=== PATIENT | male | born 1985 | race Caucasian/White ===

== ENCOUNTER 2017-04-07 13:59 | Emergency (ER) | payer MEDICAID ==
[2017-04-07 14:12] VITALS: BP 104/68
--- NOTE | 2017-04-07 14:44 | ER Document Report ---
ED Oral Problem - General Chief Complaint: Toothache Stated Complaint: TOOTHACHE Time Seen by Provider: 04/07/17 14:27 Mode of Arrival: Ambulatory Information source: Patient Notes: -year-old male presents to ED for dental pain for tooth #32 and 31. The teeth have been hurting off and on for many months but have been worse for the last 2 months. TRAVEL OUTSIDE OF THE [place] IN LAST 30 DAYS: No - HPI Patient complains to provider of: Toothache Onset: Other - The last 2 months worse this week Onset: Gradual Quality of pain: Sharp, Throbbing Severity: Moderate Pain Level: 4 Associated symptoms: Toothache Worsened by: Cold Similar symptoms previously: Yes Recently seen / treated by doctor/dentist: No - Related Data Allergies/Adverse Reactions: amoxicillin [Amoxicillin] Allergy (Unknown, Verified 04/07/17 14:09) Past Medical History - General Information source: Patient - Social History Smoking Status: Current Every Day Smoker Cigarette use (# per day): Yes Chew tobacco use (# tins/day): No Smoking Education Provided: Yes - Less than 2 minute Frequency of alcohol use: None Drug Abuse: None Lives with: Spouse/Significant other Family History: Malignancy Patient has suicidal ideation: No Patient has homicidal ideation: No - Past Medical History Cardiac Medical History: Reports: None Pulmonary Medical History: Reports: Hx Asthma, Hx Bronchitis EENT Medical History: Reports: None Neurological Medical History: Reports: None Endocrine Medical History: Reports: None Renal/ Medical History: Reports: None Malignancy Medical History: Reports None GI Medical History: Reports: None Musculoskeltal Medical History: Reports None Skin Medical History: Reports None Psychiatric Medical History: Reports: Hx Anxiety, Hx Bipolar Disorder, Hx Depression Traumatic Medical History: Reports: None Infectious Medical History: Reports: None Surgical Hx: Negative Past Surgical History: Reports: None, Hx Myringotomy - Immunizations Hx Diphtheria, Pertussis, Tetanus Vaccination: No Review of Systems - Review of Systems Constitutional: No symptoms reported EENT: Dental problem Cardiovascular: No symptoms reported Respiratory: No symptoms reported Gastrointestinal: No symptoms reported Genitourinary: No symptoms reported Male Genitourinary: No symptoms reported Musculoskeletal: No symptoms reported Skin: No symptoms reported Hematologic/Lymphatic: No symptoms reported Neurological/Psychological: No symptoms reported -: Yes All other systems reviewed and negative Physical Exam - Vital signs Vitals: Temp Pulse Resp BP Pulse Ox 98.1 F 80 18 104/68 96 04/07/17 14:09 04/07/17 14:09 04/07/17 14:04/07/17 14:09 04/07/17 14:09 Interpretation: Normal - General General appearance: Appears well, Alert - HEENT Head: Normocephalic, Atraumatic Eyes: Normal Pupils: PERRL Ears: Normal External canal: Normal Tympanic membrane: Normal Sinus: Normal Nasal: Normal Mouth/Lips: Caries Mucous membranes: Normal Teeth diagram: 1 - Multiple teeth close to the gumline with mild gingivitis 2 - Multiple teeth close to the gumline with gingivitis Pharynx: Normal Neck: Normal - Respiratory Respiratory status: No respiratory distress Chest status: Nontender Breath sounds: Normal Chest palpation: Normal - Cardiovascular Rhythm: Regular Heart sounds: Normal auscultation Murmur: No - Abdominal Inspection: Normal Distension: No distension Bowel sounds: Normal Tenderness: Nontender Organomegaly: No organomegaly - Back Back: Normal, Nontender - Extremities General upper extremity: Normal inspection, Nontender, Normal color, Normal ROM , Normal temperature General lower extremity: Normal inspection, Nontender, Normal color, Normal ROM , Normal temperature, Normal weight bearing. No: Eros's sign - Neurological Neuro grossly intact: Yes Cognition: Normal Orientation: AAOx4 [place] Coma Scale Eye Opening: Spontaneous Kelly Coma Scale Verbal: Oriented Kelly Coma Scale Motor: Obeys Commands [place] Coma Scale Total: 15 Speech: Normal Motor strength normal: LUE, RUE, LLE, RLE Sensory: Normal - Psychological Associated symptoms: Normal affect, Normal mood - Skin Skin Temperature: Warm Skin Moisture: Dry Skin Color: Normal Course - Vital Signs Vital signs: Temp Pulse Resp BP Pulse Ox 98.1 F 80 18 104/68 96 04/07/17 14:09 04/07/17 14:09 04/07/17 14:04/07/17 14:09 04/07/17 14:09 Discharge - Discharge Clinical Impression: Pain due to dental caries Condition: Serious Disposition: HOME, SELF-CARE Instructions: Dentist Additional Instructions: TOOTHACHE: Your pain is due to dental decay. The tooth must be repaired in order for you to feel better. You will, therefore, be referred to a dentist. We do not have dentists on the staff at [facility]. Severe swelling or drainage around a tooth usually means a dental abscess. This also requires evaluation and treatment by the dentist, but antibiotics may be prescribed while awaiting dental treatment. You should be rechecked immediately if you develop major swelling of the face, increasing pain, a lump in the jaw or gums, headache, difficulty swallowing, or fever. ORAL NARCOTIC MEDICATION: You have been given a prescription for pain control. This medication is a narcotic. It's best taken with food, as nausea can result if taken on an empty stomach. Don't operate machinery or drive within six hours of taking this medication. Do not combine this medicine with alcohol, or with any medication which can cause sedation (such as cold tablets or sleeping pills) unless you get permission from the physician. Narcotics tend to cause constipation. If possible, drink plenty of fluids and eat a diet high in fiber and fruits. Please be aware that prescription narcotics also have the potential for abuse. People become addicted to these medications because of the general sense of wellbeing that they induce. This feeling along with a significant reduction in tension, anxiety, and aggression provides a stimulating seductive quality to these drugs. Once your pain is under control, we encourage you to discard your unused narcotics. CLINDAMYCIN: You have been given a prescription for the antibiotic clindamycin. It is often prescribed for infections in the mouth, such as dental infections or abscesses, and for skin infections due to MRSA. It's important that you take all the medication, unless instructed otherwise by your physician. Failure to complete the entire course can result in relapse of your condition. Common side effects of antibiotics include nausea, intestinal cramping, or diarrhea. Women may develop vaginal yeast infections, and babies can get yeast (thrush) in the mouth following the use of antibiotics. Contact your physician if you develop significant side effects from this medication. Allergy to this antibiotic can result in hives, wheezing, faintness, or itching. If symptoms of allergy occur, stop the medication and call the doctor. FOLLOW-UP CARE: You have been referred for follow-up care to the dentists listed below. Call the dentists office for an appointment as you were instructed or within the next two days. If you experience worsening or a significant change in your symptoms, notify the physician immediately or return to the Emergency Department at any time for re-evaluation. [facility] [address] [place], [place] Leonardo mornings, by appointment [facility] [address] [place] [address] [facility] [place] [address] [facility] [address] [facility] [address] [email or web address] [address] [place] [address] Wednesday- 8:00am to 5:00 pm Will see patients from other [facility]. Charges based on income and family size and accepts Medicare, Medicaid, and Insurances Will pull molars [facility] [address] Hours of Operation 8:00 am - 4:30 pm weekdays The following dental offices accept Medicaid: [facility] [address] Ma Dr. Mejia Gabino [place], and [facility] Dr. Blackburn ([place]) Dr. Miller ([place]) [facility] Drs. Betts and Evan ([place]) Dr. Torres ([place]) [facility] Ctr Dr. Burroughs ([place]) Drs. Zavala and ([place]) Medicaid Care Line Prescriptions: Clindamycin HCl 300 mg PO Q6 #28 capsule Hydrocodone/Acetaminophen [[place] 5-325 mg Tablet] 1 tab PO TIDP PRN #10 tablet PRN Reason: Forms: Smoking Cessation Education
== END 2017-04-07 15:03 | disposition home or self-care (01) ==
LOC: ER 13:59
DX: K02.9 Dental caries, unspecified (principal); K08.89 Other specified disorders of teeth and supporting structures; F17.210 Nicotine dependence, cigarettes, uncomplicated
CPT/HCPCS: 99282

== ENCOUNTER 2017-09-06 02:41 | Emergency (ER) | payer MEDICAID ==
[2017-09-06] MEDS ORDERED: MIDAZOLAM 2 MG/2 ML INJ ONE ×2 (02:46→02:50)
[2017-09-06] MEDS ORDERED: CEFTRIAXONE INJ 1000 MG VIAL IV ONE (02:57)
[2017-09-06] MEDS ORDERED: VANCOMYCIN HCL INJ 1000 MG VIAL IV ONE (02:57)
[2017-09-06] MEDS ORDERED: MIDAZOLAM 2 MG/2 ML INJ IV ONE ×4 (03:00→04:52)
--- NOTE | 2017-09-06 03:01 | ER Document Report ---
ED General - General Chief Complaint: Overdose Stated Complaint: UNRESPONSIVE Time Seen by Provider: 09/06/17 02:57 Notes: Patient is a 32-year-old male who presents via ambulance due to high fever, muscle tremors, altered mental status, and IV drug abuse. Paramedics were called to a residence. They found the patient poorly responsive and having tremor. He would not open his eyes his pupils were pinpoint. They did give him Narcan. He did open his eyes and was awake after that however very altered and was unable to talk or speak or give him information. Members at the residents says that he has been injecting cocaine as well as Ambien all day long. Unsure if anything else that they may injected. He had a fever of 104 axillary with the paramedics. He was given a gram of Tylenol. He was then brought here. Patient arrives with ongoing muscle tremors. He is awake but obviously altered and not consolable. TRAVEL OUTSIDE OF THE [place] IN LAST 30 DAYS: No - Related Data Allergies/Adverse Reactions: amoxicillin [Amoxicillin] Allergy (Unknown, Verified 04/07/17 14:09) Past Medical History - Social History Smoking Status: Unknown if Ever Smoked Frequency of alcohol use: uknown Drug Abuse: Cocaine, Prescription drugs Family History: Reviewed & Not Pertinent, Malignancy Pulmonary Medical History: Reports: Hx Asthma, Hx Bronchitis Renal/ Medical History: Denies: Hx Peritoneal Dialysis Psychiatric Medical History: Reports: Hx Anxiety, Hx Bipolar Disorder, Hx Depression Past Surgical History: Reports: Hx Myringotomy - Immunizations Hx Diphtheria, Pertussis, Tetanus Vaccination: No Review of Systems - Review of Systems -: Yes ROS unobtainable due to patient's medical condition - Review of systems unable to be obtained because patient is confused. Physical Exam - Vital signs Vitals: Temp Resp Pulse Ox 104.8 F H 36 H 93 09/06/17 03:05 09/06/17 03:05 09/06/17 03:05 - Notes Notes: General Appearance: Patient is a week however he is thrashing about. He has ongoing tremors. He is trying to fight this staff but is completely nonverbal and not saying anything. Vitals: reviewed, See vital signs table. Head: no swelling or tenderness to the head Eyes: Pupils are approximately 4 mm and reactive to light. Mouth: No decreasd moisture Throat: No tonsillar inflammation, No airway obstruction, No lymphadenopathy Neck: Supple, no neck tenderness Lungs: No wheezing, No rales, No rhonci, No accessory muscle use, good air exchange bilaterally. Heart: Tachycardic rate, Regular rythm, No murmur, no rub Abdomen: Normal BS, soft, No rigidity, No abdominal tenderness, No guarding, no rebound, no abdominal masses, no organomegaly Extremities: She is very strong on exam. He is moving all extremities. He has ongoing tremors as well. No edema in extremities. Patient has multiple track walker on both upper extremities. Skin: warm, dry, appropriate color, no rash Neuro: Awake but very confused with ongoing tremors. Patient is moving all extremities on his own. Course - Re-evaluation Re-evalutation: 09/06/17 03:21 I suspect the most likely the patient's elevated temp and tremors is related to the ongoing IV abuse that he has been doing tonight. I suspect that he was indeed doing cocaine based on his high heart rate and ongoing tremors and hyperthermia. I also suspect he may have used other drugs such as opiates being that when he was first found his pupils were pinpoint and this reversed with Narcan and he woke. I initially gave the patient 3 mg of Versed which typically calm down. I then had given another 3 mg of Versed IV. This temporarily stopped his tremor for approximately 5 minutes but then he started having a tremor again. Patient is now poorly responsive with ongoing tremor. I therefore have decided to intubate the patient. I give the patient rocuronium 100 mg followed by Versed. Patient will be placed on high-dose Versed drip. Cor temp Nuno catheter has been placed and his temp is just over 104. He is receiving IV fluids as well. I suspect that his fever and tremors are related to his IV drug abuse. I cannot 100% rule out possible infection being that he is an IV drug abuser as well and therefore will prophylactically treat him with Rocephin and vancomycin in the meantime. Laboratory evaluation has been ordered. Patient will be closely monitored until workup is completed. We will continue to try to treat his temp. will continue to keep him at a dose Versed drip until the rocuronium wears off so that we are treating in the underlying potential seizure activity which is definitely a strong possibility of occurring with his reported overdosages. I currently do not have the capability of continuous EEG at my facility. 09/06/17 03:24 09/06/17 04:11 Patient is doing better after intubation. His Versed drip is at 10 mg an hour. On the monitor his heart rate is in the 130s now. His blood pressure is normal. His oxygenation is normal. His temp has come down to 102.9. 09/06/17 05:31 I did perform a lumbar puncture on the patient. Results are pending. I have spoken with Dr. Verdugo, chicken hanger at [facility], he agrees to accept the patient. I feel the patient needs transfer being that the patient has higher risk of developing subclinical status and we have no ability to monitor with EEG here. Dr. Verdugo agrees to accept the patient and patient will be transferred. Patient's current temp is now down to 100.9F. His heart rate is down to 118. Blood pressure is normal. 09/06/17 05:46 Patient has had 2 episodes of oxygen desaturation which seems to be related to mucus plugging. It seems to clear with suctioning. I will obtain a repeat chest x-ray to make sure nothing else is going on. 09/06/17 06:06 Patient is bed assignment at [facility]. Helicopter is just now arriving. Patient's blood pressure has been in the 80s systolically over the last 30 minutes. I will decrease his Versed drip. This will most likely help correct his mild hypotension. His mean arterial pressure is currently 68 therefore does not need any pressor therapy at this time. I suspect with decreasing the Versed drip and giving him IV fluids if needed this will help correct any mild hypotension he has. Stable for transfer. Dictation of this chart was performed using voice recognition software; therefore, there may be some unintended grammatical errors. - Vital Signs Vital signs: Temp Pulse Resp BP Pulse Ox 99.8 F 18 86/59 L 98 09/06/17 06:56 09/06/17 06:56 09/06/17 06:56 09/06/17 06:56 - Laboratory Result Diagrams: 09/06/17 02:45 09/06/17 02:45 Laboratory results interpreted by me: 09/06/17 09/06/17 09/06/17 02:45 02:45 02:45 WBC 2.3 L Seg Neuts % (Manual) 20 L Lymphocytes % (Manual) 70 H Monocytes % (Manual) 2 L Abs Neuts (Manual) 0.6 L Abs Monocytes (Manual) 0.0 L Carbon Dioxide 18 L Glucose 144 H Lactic Acid 4.7 H Urine Protein CSF Glucose Salicylates < 1.0 L Acetaminophen < 10 L 09/06/17 09/06/17 03:00 04:50 WBC Seg Neuts % (Manual) Lymphocytes % (Manual) Monocytes % (Manual) Abs Neuts (Manual) Abs Monocytes (Manual) Carbon Dioxide Glucose Lactic Acid Urine Protein 100 H CSF Glucose 73 H Salicylates Acetaminophen - EKG Interpretation by Me Additional EKG results interpreted by me: 09/06/17 04:10 EKG is reviewed and interpreted by me. EKG shows sinus tachycardia with rate of [address] segment elevation or depression. MT interval, QRS duration, QTc intervals are within normal range. Old EKG for comparison is from September 03, 2012. Procedures - Intubation Orotracheal Airway evaluation: Normal anatomy Mallampati Classification: Class 1 Intubation method: Orotracheal Blade size: 3 ETT size: 7.5 ETT secured at: Lips ETT secured at (cm): 23 Breath Sounds after Intubation: Equal End tidal CO2 confirmed: Yes Post Intubation Xray: Yes Intubation Complications: No complications - Lumbar Puncture Lumbar puncture Patient position: Lying Needle size: 22 Lumbar puncture location: L2-L3 Amount/type of drainage: 7mls of clear CSF Number of attempts: 2 Complications: No Critical Care Note - Critical Care Note Total time excluding time spent on procedures (mins): 60 Comments: Critical care time spent is this patient not including time spent on procedures approximately 60 minutes due to management of high fever, seizures, some mild hypotension, frequent re-evaluations, discussion with specialist the receiving facility. Discharge - Discharge Clinical Impression: Amphetamine abuse, Cocaine abuse, Opiate abuse, continuous, Seizure Fever Qualifiers: Fever type: unspecified Qualified Code(s): R50.9 - Fever, unspecified Aspiration into respiratory tract Qualifiers: Encounter type: initial encounter Qualified Code(s): T17.908A - Unspecified foreign body in respiratory tract, part unspecified causing other injury, initial encounter Condition: Serious Disposition: [facility]
[2017-09-06] MEDS ORDERED: ETOMIDATE INJ/PF 20 MG/10 ML SDV IV ONE (03:05)
[2017-09-06] MEDS ORDERED: MIDAZOLAM HCL 100 ML IV PRN (03:06)
[2017-09-06] MEDS ORDERED: ROCURONIUM BROMIDE INJ 50 MG/5 ML VIAL IV ONE ×2 (03:06→09:07)
[2017-09-06 03:12] LABS: HEMATOCRIT 40.4 % (37.9-51.0); HEMOGLOBIN 14.3 g/dL (13.5-17.0); HGB HCT DIFFERENCE 2.5; MEAN CORPUSCULAR HEMOGLOBIN 30.3 pg (27.0-33.4); MEAN CORPUSCULAR HGB CONC 35.4 g/dL (32.0-36.0); MEAN CORPUSCULAR VOLUME 86 fl (80-97); RED BLOOD COUNT 4.71 10^6/uL (4.35-5.55); RED CELL DISTRIBUTION WIDTH 13.4 % (11.5-14.0); WHITE BLOOD COUNT 2.3 10^3/uL (4.0-10.5)
[2017-09-06] MEDS ORDERED: KETOROLAC TROMETHAMINE INJ/PF 30 MG/1 ML SDV IV ONE (03:24)
[2017-09-06 03:31] LABS: BAND NEUTROPHILS % (MANUAL) 5 % (3-5); BASOPHILS % (MANUAL) 0 % (0-2); EOSINOPHILS % (MANUAL) 3 % (0-6); LYMPHOCYTES % (MANUAL) 70 % (13-45); TOTAL CELLS COUNTED 100
[2017-09-06 03:33] LABS: POIKILOCYTOSIS SLIGHT; STOMATOCYTES SLIGHT; TOXIC GRANULATION SLIGHT; TOXIC VACUOLATION PRESENT
[2017-09-06 03:38] LABS: APPEARANCE,URINE CLEAR; BILIRUBIN,URINE NEGATIVE (NEGATIVE); GLUCOSE, URINE NEGATIVE (NEGATIVE); KETONES,URINE NEGATIVE (NEGATIVE); LEUKOCYTE ESTERASE,URINE NEGATIVE (NEGATIVE); NITRITE,URINE NEGATIVE (NEGATIVE); PROTEIN,URINE 100 mg/dL (NEGATIVE); URINE SPECIFIC GRAVITY 1.034; UROBILINOGEN,URINE NEGATIVE mg/dL (<2.0)
[2017-09-06] MEDS: NORMAL SALINE 1000 ML 1,000 ML IV PRN ×2 (04:01→04:04)
[2017-09-06 04:05] LABS: ALANINE AMINOTRANSFERASE 36 U/L (21-72); ALBUMIN 4.2 g/dL (3.5-5.0); ALKALINE PHOSPHATASE 55 U/L (38-126); ASPARTATE AMINO TRANSFERASE 45 U/L (17-59); BILIRUBIN,DIRECT 0.4 mg/dL (0.0-0.4); BILIRUBIN,TOTAL 0.9 mg/dL (0.2-1.3); BLOOD UREA NITROGEN 14 mg/dL (7-20); CALCIUM 8.8 mg/dL (8.4-10.2); CREATINE KINASE 86 U/L (55-170); CREATININE RESULT 1.14 mg/dL (0.52-1.25); GLUCOSE 144 mg/dL (75-110); TOTAL PROTEIN 6.7 g/dL (6.3-8.2)
[2017-09-06] MEDS ORDERED: LIDOCAINE 1% INJ-PF (10 MG/ML) 30 ML SDV INJ ONE (04:11)
[2017-09-06 04:14] LABS: ANION GAP 18 (5-19); CARBON DIOXIDE 18 mmol/L (22-30); CHLORIDE 106 mmol/L (98-107); POTASSIUM 4.2 mmol/L (3.6-5.0); SODIUM 142.2 mmol/L (137-145)
--- NOTE | 2017-09-06 04:15 | RADIOLOGY REPORT (SQ) ---
EXAM DESCRIPTION: CHEST SINGLE VIEW COMPLETED DATE/TIME: 09/06/2017 3:42 am REASON FOR STUDY: post intubation COMPARISON: None. EXAM PARAMETERS: NUMBER OF VIEWS: One view TECHNIQUE: Single frontal radiograph of the chest. RADIATION DOSE: N/A LIMITATIONS: None. FINDINGS: TEMPORARY SUPPORT DEVICES:ETT in expected location. NG tube courses below the left keagan-d iaphragm in to the stomach. LUNGS AND PLEURA: No consolidation, pleural effusion or pneumothorax. MEDIASTINUM AND HILAR STRUCTURES: No masses. Contour normal. HEART AND VASCULAR STRUCTURES: Heart size normal. No overt vascular congestion. BONES: No acute findings. IMPRESSION: No acute radiographic findings in the chest. Support devices in expected locations. TECHNICAL DOCUMENTATION: JOB ID: [id number] 2010 [employer]- All Rights Reserved
[2017-09-06 04:17] LABS: URINE BARBITURATES SCREEN NEGATIVE; URINE METHADONE SCREEN NEGATIVE; URINE PHENCYCLIDINE SCREEN NEGATIVE
[2017-09-06 04:56] LABS: THYROID STIMULATING HORMONE 0.56 uIU/mL (0.47-4.68)
[2017-09-06 05:53] LABS: GLUCOSE,CSF 73 mg/dL (40-70)
[2017-09-06 06:00] LABS: APPEARANCE ALL TUBES CLEAR
[2017-09-06 06:01] LABS: RBC AVERAGE 0.5; RBC DILUENT USED NONE USED; RBC DILUTION FACTOR 1; RBC SIDE 1 0; RBC SIDE 2 1; TOTAL RBC SQUARES COUNTED 225
[2017-09-06 06:02] LABS: WHITE BLOOD CELL,CSF 0 /uL (0-5)
--- NOTE | 2017-09-06 06:13 | RADIOLOGY REPORT (SQ) ---
EXAM DESCRIPTION: CT HEAD WITHOUT COMPLETED DATE/TIME: 09/06/2017 6:02 am REASON FOR STUDY: altered mental status, OD. COMPARISON: None. TECHNIQUE: Axial images acquired through the brain without intravenous contrast. Images reviewed wi th bone, brain and subdural windows. Images stored on PACS. All CT scanners at this facility use dose modulation, iterative reconstruction, and/or weight based d osing when appropriate to reduce radiation dose to as low as reasonably achievable (ALARA). [facility]: Dose Right [facility]: CareDose [facility]: Dose Right [facility]: Teradose 4D [facility]: [employer] RADIATION DOSE: Up-to-date CT equipment and radiation dose reduction techniques were employed. CTDIv ol: 64.6 mGy. DLP: 1397 mGy-cm. mGy. LIMITATIONS: None. FINDINGS: VENTRICLES: Normal size and contour. CEREBRUM: No mass effect. No hemorrhage. No midline shift. Normal alan/white matter differentiatio n. No evidence for acute territorial infarction. CEREBELLUM: No mass effect. No hemorrhage. No alteration of density. No evidence for acute infarct ion. EXTRAAXIAL SPACES: No fluid collections. ORBITS AND GLOBE: Symmetrical contour of the globes. CALVARIUM: No depressed skull fracture. PARANASAL SINUSES: No air-fluid level. SOFT TISSUES: No hematoma. IMPRESSION: No acute intracranial hemorrhage or acute territorial infarct. EVIDENCE OF ACUTE STROKE: NO. COMMENT: Quality ID # [id number]: Final reports with documentation of one or more dose reduction techniques (e.g., Automated exposure control, adjustment of the mA and/or kV according to patient size, use of iterative reconstruction technique) TECHNICAL DOCUMENTATION: JOB ID: [id number] [employer]- All Rights Reserved
--- NOTE | 2017-09-06 06:49 | RADIOLOGY REPORT (SQ) ---
EXAM DESCRIPTION: CHEST SINGLE VIEW COMPLETED DATE/TIME: 09/06/2017 6:19 am REASON FOR STUDY: desaturation on ventilator COMPARISON: Chest x-ray 09/06/2017 at 03:24 hours EXAM PARAMETERS: NUMBER OF VIEWS: One view TECHNIQUE: Single frontal radiographic view of the chest acquired portable upright on 09/06/2017 at 0 5:49 hours. RADIATION DOSE: N/A LIMITATIONS: None. FINDINGS: TEMPORARY SUPPORT DEVICES:ETT in expected location. NG tube courses below the left keagan-d iaphragm in to the stomach. LUNGS AND PLEURA: Ground-glass opacity at the right lung base. No pleural effusion or pneumothorax. MEDIASTINUM AND HILAR STRUCTURES: No masses. Contour normal. HEART AND VASCULAR STRUCTURES: Heart size normal. No overt vascular congestion. BONES: No acute findings. IMPRESSION: Ground-glass opacity at the right lung base, may represent atelectasis or aspiration pne umonia. Support devices in expected locations. TECHNICAL DOCUMENTATION: JOB ID: [id number] [place]-[id number] 2010 [employer]- All Rights Reserved
[2017-09-06] MEDS ORDERED: NORMAL SALINE 1000 ML 1,000 ML IV ONE (07:00)
[2017-09-06 07:27] LABS: URINE OPIATES LOW UNCONFIRMED POSITIVE
[2017-09-06 08:02] VITALS: BP 77/59
--- NOTE | 2017-09-06 21:37 | EKG REPORT ---
SEVERITY:- ABNORMAL ECG - SINUS TACHYCARDIA NONSPECIFIC T ABNORMALITIES, INFERIOR LEADS : Confirmed by: Jimenez Carroll 06-Sep-2017 21:36:33
== END 2017-09-06 07:21 | disposition short-term general hospital (02) ==
LOC: ER 02:41
PROC: 0BH17EZ Insertion of Endotracheal Airway into Trachea, Via Natural or Artificial Opening (ICD-10-PCS; principal; 2017-09-06)
PROC: 009U3ZX Drainage of Spinal Canal, Percutaneous Approach, Diagnostic (ICD-10-PCS; 2017-09-06)
DX: F14.10 Cocaine abuse, uncomplicated (principal); F15.10 Other stimulant abuse, uncomplicated; F11.10 Opioid abuse, uncomplicated; R50.9 Fever, unspecified; R56.9 Unspecified convulsions; I95.9 Hypotension, unspecified; T17.998A Other foreign object in respiratory tract, part unspecified causing other injury, initial encounter; X58.XXXA Exposure to other specified factors, initial encounter
CPT/HCPCS: 93005; 99291; 51702; 96375; 96365; 96366; 96368; 36415; 87040; 87070; 84439; 87205; 82550; 80307 ×3; 84443; 85025; 89050; 82945; 84157; 87077; 80053; 81001; 87186; 83605; 71010; 70450; 93010; 31500; 62270; J2250 ×2; J3490 ×2; J1885; J0696; J7030; J3370

== ENCOUNTER 2018-09-27 22:29 | Emergency (ER) | payer MEDICAID, OTHER ==
[2018-09-27] MEDS ORDERED: LORAZEPAM INJ 2 MG/1 ML VIAL IV ONE ×2 (22:35→23:01)
[2018-09-27] MEDS ORDERED: NORMAL SALINE 1000 ML 1,000 ML IV ONE (22:35)
[2018-09-27 22:55] LABS: ABSOLUTE BASOPHILS # (AUTO) 0.1 10^3/uL (0.0-0.2); ABSOLUTE LYMPHOCYTES (AUTO) 2.4 10^3/uL (0.5-4.7); ABSOLUTE MONOCYTES (AUTO) 0.9 10^3/uL (0.1-1.4); ABSOLUTE NEUT (AUTO) 10.5 10^3/uL (1.7-8.2); BASOPHILS % (AUTO) 0.9 % (0-2); EOSINOPHILS % (AUTO) 0.2 % (0-6); HEMATOCRIT 45.2 % (37.9-51.0); HEMOGLOBIN 15.9 g/dL (13.5-17.0); LYMPHOCYTES % (AUTO) 17.2 % (13-45); MEAN CORPUSCULAR HEMOGLOBIN 30.3 pg (27.0-33.4); MEAN CORPUSCULAR HGB CONC 35.2 g/dL (32.0-36.0); MEAN CORPUSCULAR VOLUME 86 fl (80-97); MONOCYTES % (AUTO) 6.6 % (3-13); PLATELET COUNT 329 10^3/uL (150-450); RED BLOOD COUNT 5.25 10^6/uL (4.35-5.55); RED CELL DISTRIBUTION WIDTH 12.8 % (11.5-14.0); SEGMENTED NEUTROPHILS % (AUTO) 75.1 % (42-78); TOTAL CELLS COUNTED % (AUTO) 100 %; WHITE BLOOD COUNT 13.9 10^3/uL (4.0-10.5)
--- NOTE | 2018-09-27 23:02 | ER Document Report ---
ED General - General Chief Complaint: Anxiety Stated Complaint: ANXIETY Time Seen by Provider: 09/27/18 22:34 Notes: Patient is a 33-year-old male who presents via ambulance due to being tachycardic and very anxious and agitated after doing methamphetamine. Patient says he does not think anything else was with the meth based on 100% sure either. Patient is very anxious and talking rapidly and having a hard time staying still. He denies headache. He denies chest pain. He says he just feels very "scared". He says he does not have any chronic medical problems and is otherwise healthy. 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 TRAVEL OUTSIDE OF THE [place] IN LAST 30 DAYS: No - Related Data Allergies/Adverse Reactions: amoxicillin [Amoxicillin] Allergy (Unknown, Verified 04/07/17 14:09) Past Medical History - Social History Smoking Status: Current Every Day Smoker Chew tobacco use (# tins/day): No Frequency of alcohol use: None Drug Abuse: Cocaine, Heroin, Methamphetamine Family History: Reviewed & Not Pertinent, Malignancy Patient has suicidal ideation: No Patient has homicidal ideation: No Pulmonary Medical History: Reports: Hx Asthma, Hx Bronchitis Renal/ Medical History: Denies: Hx Peritoneal Dialysis Psychiatric Medical History: Reports: Hx Anxiety, Hx Bipolar Disorder, Hx Depression Past Surgical History: Reports: Hx Myringotomy - Immunizations Hx Diphtheria, Pertussis, Tetanus Vaccination: No Review of Systems - Review of Systems Notes: My Normal Review Basic REVIEW OF SYSTEMS: CONSTITUTIONAL : Denies fever, chills, or sweats. Denies recent illness. EENT: Denies eye, ear, throat, or mouth pain or symptoms. Denies nasal or sinus congestion. CARDIOVASCULAR: Rotations. No chest pain. RESPIRATORY: Denies cough, cold, or chest congestion. Denies shortness of breath, difficulty breathing, or wheezing. GASTROINTESTINAL: Denies abdominal pain. Denies nausea, vomiting, or diarrhea. MUSCULOSKELETAL: Denies neck or back pain or joint pain or swelling. SKIN: Denies rash or skin lesions. NEUROLOGICAL: Denies altered mental status or loss of consciousness. Denies headache. Denies weakness or paralysis or loss of use of either side. Denies problems with gait or speech. Denies sensory or motor loss. ALL OTHER SYSTEMS REVIEWED AND NEGATIVE. Physical Exam - Vital signs Vitals: Resp Pulse Ox 29 H 95 09/27/18 22:35 09/27/18 22:35 - Notes Notes: General Appearance: Patient is sweaty. Has a hard time staying still. Is constantly moving about the bed. He is very anxious. Vitals: reviewed, See vital signs table. Head: no swelling or tenderness to the head Eyes: PERRL, EOMI, Conjuctiva clear Mouth: Some dry mouth. Throat: No tonsillar inflammation, No airway obstruction, No lymphadenopathy Neck: Supple, no neck tenderness, Lungs: No wheezing, No rales, No rhonci, No accessory muscle use, good air exchange bilaterally. Heart: Tachycardic rate, Regular rythm, No murmur, no rub Abdomen: Normal BS, soft, No rigidity, No abdominal tenderness, No guarding, no rebound, Extremities: strength 5/5 in all extremities, good pulses in all extremities, no swelling or tenderness in the extremities, no edema. Skin: warm, dry, appropriate color, no rash Neuro: speech clear, oriented x 3, anxiuos affect, responds appropriately to questions. Patient moves all extremities without difficulty. No focal neurologic deficits on exam. Cranial nerves II through XII are intact. Course - Re-evaluation Re-evalutation: 09/27/18 23:02 After 2 mg of Ativan patient still tachycardic and still very anxious and cannot stay still pill I will give him 3 mg of Ativan and then reassess. 09/27/18 23:19 After the additional 3 mg of Ativan patient is still restless and thrashing around in the bed. We will give him 4 mg of Versed. 09/27/18 23:46 Versed worked very well for the patient. He is now resting comfortably. His heart rate went from the 150s down to the low 110s. We will continue to keep a close eye on him. 09/28/18 01:57 Continues to be resting comfortably. Heart rate is down to 100. Patient looks well. - Vital Signs Vital signs: Temp Pulse Resp BP Pulse Ox 98.2 F 21 H 148/102 H 96 09/27/18 22:40 09/28/18 02:00 09/27/18 22:37 09/28/18 02:00 - Laboratory Result Diagrams: 09/27/18 22:45 09/27/18 22:45 Laboratory results interpreted by me: 09/27/18 09/27/18 22:45 22:45 WBC 13.9 H Absolute Neutrophils 10.5 H Sodium 146.5 H BUN 27 H Glucose 115 H ALT 116 H Total Protein 9.0 H Albumin 5.2 H Salicylates < 1.0 L Acetaminophen < 10 L - EKG Interpretation by Me Additional EKG results interpreted by me: 09/28/18 00:40 EKG is reviewed and interpreted by me. EKG shows sinus tachycardia with a rate of [address] segment elevation or depression. No ischemic T wave inversions. IL interval and QRS duration are within normal range. QT C interval is prolonged. Old EKG for comparison is from September 06, 2017. Discharge - Discharge Clinical Impression: Methamphetamine abuse Instructions: Anxiety ([facility]) Additional Instructions: Please never use Meth or any street drugs ever again. Use of Meth can lead to hear attack and . Fortunately you do not have any evidence of heart attack today and did recover. please return to the ER immediately if you have chest pain, difficulty breathing, or feel unwell. Forms: Return to Work
[2018-09-27] MEDS ORDERED: LORAZEPAM INJ 2 MG/1 ML VIAL ONE (23:03)
[2018-09-27 23:17] LABS: ALANINE AMINOTRANSFERASE 116 U/L (21-72); ALBUMIN 5.2 g/dL (3.5-5.0); ALKALINE PHOSPHATASE 80 U/L (38-126); ANION GAP 18 (5-19); ASPARTATE AMINO TRANSFERASE 55 U/L (17-59); BILIRUBIN,DIRECT 0.3 mg/dL (0.0-0.4); BILIRUBIN,TOTAL 1.3 mg/dL (0.2-1.3); BLOOD UREA NITROGEN 27 mg/dL (7-20); CALCIUM 10.2 mg/dL (8.4-10.2); CARBON DIOXIDE 26 mmol/L (22-30); CHLORIDE 103 mmol/L (98-107); GLUCOSE 115 mg/dL (75-110); POTASSIUM 3.8 mmol/L (3.6-5.0); SODIUM 146.5 mmol/L (137-145)
[2018-09-27] MEDS ORDERED: MIDAZOLAM 2 MG/2 ML INJ IV ONE (23:17)
[2018-09-27 23:18] LABS: ACETAMINOPHEN < 10 ug/mL (10-30); ALCOHOL < 10 mg/dL (NONE DETECTED); SALICYLATE < 1.0 mg/dL (2.0-20.0)
[2018-09-28] MEDS ORDERED: MIDAZOLAM 2 MG/2 ML INJ IV PRN (01:32)
[2018-09-28] MEDS ORDERED: MIDAZOLAM 2 MG/2 ML INJ ONE (06:01)
--- NOTE | 2018-09-28 07:27 | EKG REPORT ---
SEVERITY:- ABNORMAL ECG - SINUS TACHYCARDIA PROLONGED QT INTERVAL : Confirmed by: Jimenez Carroll 28-Sep-2018 07:25:17
--- NOTE | 2018-09-28 09:30 | ER Document Report ---
Doctor's Note Notes: 09/28/18 09:30 Patient evaluated and is sitting up eating breakfast. He is tolerating oral intake and in no acute distress. He is oriented to person place and time. He is able to ambulate without ataxia. He does endorse methamphetamine use last night. He has no current complaints. He will be discharged home to a sober caregiver.
[2018-09-28 09:45] VITALS: BP 101/70
== END 2018-09-28 10:07 | disposition home or self-care (01) ==
LOC: ER 22:29
DX: F15.10 Other stimulant abuse, uncomplicated (principal); F14.10 Cocaine abuse, uncomplicated; F11.10 Opioid abuse, uncomplicated; F41.9 Anxiety disorder, unspecified; R00.0 Tachycardia, unspecified; R61 Generalized hyperhidrosis; R68.2 Dry mouth, unspecified; F17.200 Nicotine dependence, unspecified, uncomplicated; J45.909 Unspecified asthma, uncomplicated; Z88.0 Allergy status to penicillin
CPT/HCPCS: 93005; 96376; 99284; 96361; 96374; 96375; 36415; 80307 ×3; 85025; 80053; 93010; J2250 ×2; J2060; J7030